=== PATIENT | female | born 1950 | race Caucasian/White ===

== ENCOUNTER → 2018-09-22 | Outpatient (CLI) | payer BC, OTHER ==
[~2018-09-22] MED LIST: ESCT10T PO; EST1.25T PO; FEXO30TA17 PO; LEVO75TA57 PO; LOSA100T16 PO
== END ==
LOC: CARD 11:42
PROVIDERS: ATTEND Internal Medicine Interventional Cardiology
DX: Z01.810 Encounter for preprocedural cardiovascular examination (principal); I10 Essential (primary) hypertension; E66.9 Obesity, unspecified
CPT/HCPCS: 93306

== ENCOUNTER → 2022-11-18 | Outpatient (CLI) | payer OTHER | LOC: LAB 12:10 | DX: Z01.818 Encounter for other preprocedural examination (principal) | CPT/HCPCS: 36415; 85652; 86141 ==